=== PATIENT | female | born 1945 | race Caucasian/White ===

== ENCOUNTER 2017-04-29 14:31 | Outpatient (RCR) | payer MEDICARE, OTHER, SELFPAY ==
[2017-04-28 01:12] VITALS: BP 134/78; PULSE 84; RESP 18; TEMP 37.3; BMI 19.5
[2017-04-29 14:44] VITALS: BP 115/72; PULSE 75; RESP 18; TEMP 37; BMI 19.5
--- NOTE | 2017-04-29 16:10 | PCM.WC.PN ---
(1) Non-pressure chronic ulcer of left ankle with fat layer exposed Status: Acute Current Visit: Yes Code(s): L97.322 - Non-pressure chronic ulcer of left ankle with fat layer exposed (2) Venous insufficiency (chronic) (peripheral) Status: Chronic Current Visit: Yes Code(s): I87.2 - Venous insufficiency (chronic) (peripheral) (3) Localized edema Status: Chronic Current Visit: Yes Code(s): R60.0 - Localized edema Type of Wound Date of Service: 04/29/17 Chief Complaint: non-healing wound left ankle History of Wound: 72 year old woman, non-diabetic, presents with approximately 1 month history of left ankle ulceration. She is not sure how it started, but believes it might have started due to rubbing in a certain pair of shoes. She notes that the area started as a rash that she scratched, and it turned into a large open wound. She has been applying triamcinalone cream along with telfa pad. Referred here by her PCP. Has not had imaging, vascular studies, labs done recently. Pt is a current light smoker, approximately 4-5 cigarettes per day. Denies much pain, pus, malodor, warmth, redness. Denies N/V/F/C. No history of autoimmune disease. Has mild edema of her left leg. 02/18--Using santyl nickel thickness and dry dressing daily. Labs done, x-rays done, but pt forgot about vascular testing which we rescheduled for next week. Using lotrisone cream to rash around ulcer L ankle. X-rays show no acute osseous abnormality. Labs showed multiple problems including anemia (hgb 7.0). We did forward the CBC results to her PCP on Friday02/14/17, and instructed the patient to contact his office today to schedule an appointment to discuss these labs. Pt denies pus, malodor, warmth, pain, redness. Denies N/V/F/C. 03/04--Using santyl nickel thickness and dry dressing daily. Labs done, x-rays done, but pt forgot about vascular testing again which we rescheduled for next week--unfortunately her recently . Using lotrisone cream to rash around ulcer L ankle. X-rays show no acute osseous abnormality. Labs showed multiple problems including anemia (hgb 7.0). We did forward the CBC results to her PCP on Friday02/14/17, and instructed the patient to contact his office once again today to schedule an appointment to discuss these labs. Pt denies pus, malodor, warmth, pain, redness. Denies N/V/F/C. We will setup home health -- her was performing dressing changes. Plan for biopsy after vascular testing given atypical appearance and location of ulcer. 03/11--Using santyl nickel thickness and dry dressing daily. Using lotrisone cream to rash around ulcer L ankle. Labs showed multiple problems including anemia (hgb 7.0). We did forward the CBC results to her PCP on Friday02/14/17, and instructed the patient to contact his office once again today to schedule an appointment to discuss these labs. Pt denies pus, malodor, warmth, pain, redness. Denies N/V/F/C. Plan for biopsy after vascular testing given atypical appearance and location of ulcer. Plan to decrease to 3x/week dsg changes. 03/18--Using fibracol plus every other day. Using lotrisone cream to rash around ulcer L ankle. Labs showed multiple problems including anemia (hgb 7.0). We did forward the CBC results to her PCP on Friday02/14/17, and instructed the patient to contact his office once again today to schedule an appointment to discuss these labs--she has not yet done so. Pt denies pus, malodor, warmth, pain, redness. Denies N/V/F/C. We were planning for biopsy after vascular testing given atypical appearance and location of ulcer, but given finding of venous insufficiency, we will treat this as a VLU and biopsy in the future if needed. Plan to decrease to 2x/week dsg changes and add compression with 3M 2-layer coban wrap. 03/25--Improved with fibracol plus and 3M 2-layer coban wrap. Still has not seen her PCP for abnormal lab work, advised her again to schedule an appointment to see him. Denies N/V/F/C. Denies pain, malodor, warmth, redness, pus. 04/08--Improved with fibracol plus and 3M 2-layer coban wrap. Still has not seen her PCP for abnormal lab work, advised her again to schedule an appointment to see him. Her daughter is with her today and states that she will get that appointment scheduled. Denies N/V/F/C. Denies pain, malodor, warmth, redness, pus. 04/15--Improved with fibracol plus and 3M 2-layer coban wrap. Still has not seen her PCP for abnormal lab work, advised her again to schedule an appointment to see him. Her daughter is with her today and states that she will get that appointment scheduled. Denies N/V/F/C. Denies pain, malodor, warmth, redness, pus. 04/29/17--Improved with fibracol plus and 3M 2-layer coban wrap. Still has not seen her PCP for abnormal lab work, advised her once again to schedule an appointment to see him. Denies N/V/F/C. Denies pain, malodor, warmth, redness, pus. Progress of Wound: Measurements improved and more granular tissue in the wound bed today. - Physical Exam Vital Signs Temp Pulse Resp BP 98.6 F 75 18 115/72 04/29/17 14:44 04/29/17 14:44 04/29/17 14:44 04/29/17 14:44 General: Alert, Cooperative, No apparent distress Skin: Ulcer/ Wound - L medial ankle with no erythema, no malodor, no pus, no calor, no TTP. No clinical signs of acute bacterial infection noted. See nurse's wound assessment. Wound Measurements and Assessment WC - Nurse 1 - General Ulcer Measurement Start: 04/29/17 14:43 Freq: Status: Active Protocol: Activity Type Activity Date Activity User E-Sign Co-Sign Detail Recorded Client Recorded Date Recorded By Document 04/29/17 14:44 DALIA [id number] 04/29/17 14:51 DALIA 04/29/17 14:44 Wound Center Nurse 1 [Ulcer Assessment Protocol: WC.WD.LOC] #1 Left Medial Ankle -Combined with other wound No -Current Size (cm) - Length 0.5 -Current Size (cm) - Width 1.0 -Current Size (cm) - Depth 0.1 -Total Square Cm 0.50 -Photo Taken No -Epithelialization Medium 34-66% -Tunneling No -Undermining/Tunneling No -Circular Undermining No -Exudate Amt Small (1-33%) -Exudate Type Serosanguineous -Wound Margin Flat & Intact -Granulation Amt Large (67-100%) -Granulation Quality Red -Slough/Fibrin Yes -Necrosis Amt Small (1-33%) -Necrotic Tissue Type Adherent Slough -Structure Exposed N/A -Texture (Angelic-wound Skin Appearance) Assessed Scarring -Moisture (Angelic-wound Skin Appearance Assessed ) Dry/Scaly -Color (Angelic-wound Skin Appearance) Assessed Hemosiderin Staining -Temperature (Angelic-wound Skin No Abnormality Appearance) (Pt Warm) -Tenderness on Palpation (Angelic-wound No Skin Appearance) -Ulcer Cleansing Wound Cleanser -Foul Odor after Cleansing No -Anesthetic Used 4% Lidocaine Solution [Edema Assessment] -Lower Limb Edema Present No -Left Calf (cm) 28.0 -Left Ankle (cm) 18.4 WC - Nurse 2 - General Ulcer CM Notes Start: 04/29/17 14:43 Freq: Status: Active Protocol: Activity Type Activity Date Activity User E-Sign Co-Sign Detail Recorded Client Recorded Date Recorded By Document 04/29/17 15:35 MW [id number] 04/29/17 15:38 MW 04/29/17 15:35 Wound Center Nurse 2 [Procedure/Treatment] #1 Left Medial Ankle -Time 15:35 -Correct Patient Yes -Correct Side, Site, Position Yes -Correct Procedure Yes -Procedure Performed Yes -Type of Procedure Debridement -Clinical Debridement Subcutaneous -Post Debridement Size (cm) - Length 0.9 -Post Debridement Size (cm) - Width 0.5 -Post Debridement Size (cm) - Depth 0.1 -Total Square Cm 0.45 -Wound/Ulcer Outcome Not Healed -Ulcer Cleansing Rinsed/ Irrigated with Saline -Foul Odor after Cleansing No -Bioengineered Tissue No -Cetacaine [place] No -Bleeding Controlled with Pressure -Treatment Response Procedure Tolerated Well [See Physician Procedure note for Specifics] Pain Scale: 0-10 Numeric [Pain] -Is Patient Pain Free? Yes Debridement Note Post-Debridement Measurements/Treatment WC - Nurse 2 - General Ulcer CM Notes Start: 04/29/17 14:43 Freq: Status: Active Protocol: Activity Type Activity Date Activity User E-Sign Co-Sign Detail Recorded Client Recorded Date Recorded By Document 04/29/17 15:35 MW [id number] 04/29/17 15:38 MW 04/29/17 15:35 Wound Center Nurse 2 #1 Left Medial Ankle -Time 15:35 -Correct Patient Yes -Correct Side, Site, Position Yes -Correct Procedure Yes -Procedure Performed Yes -Type of Procedure Debridement -Clinical Debridement Subcutaneous -Post Debridement Size (cm) - Length 0.9 -Post Debridement Size (cm) - Width 0.5 -Post Debridement Size (cm) - Depth 0.1 -Total Square Cm 0.45 -Wound/Ulcer Outcome Not Healed -Ulcer Cleansing Rinsed/ Irrigated with Saline -Foul Odor after Cleansing No -Bioengineered Tissue No -Cetacaine [place] No -Bleeding Controlled with Pressure -Treatment Response Procedure Tolerated Well Pain Scale: 0-10 Numeric Is Patient Pain Free? Yes Wound debrided: L medial ankle Laterality: Left Wound Grade/Stage: Full thickness VLU Type of Debridement: Excisional debridement Anesthesia Used: 4% Lidocaine Solution Depth: Down to and including healthy tissue, in the subcutaneous layer Percentage of wound debrided: 100 Instrument Used: 3mm curette Tissue Removed: fibrous slough Severity: Fat Layer Exposed Amount of bleeding with debridement: Mild Bleeding Controlled with: Pressure, Compression and gauze Measures smaller after debridement Assessment/Plan Active Problems Non-pressure chronic ulcer of left ankle with fat layer exposed (Acute) Localized edema (Chronic) Venous insufficiency (chronic) (peripheral) (Chronic) Assessment: See diagnoses Plan: SQ/excisional debridement of L ankle ulcer as above. Cont fibracol plus, cont stasis pad. Cont 3M 2-layer coban wrap, Friday wrap change by home health. We were planning on biopsy, but this ulcer appears to be secondary to venous insufficiency--we will treat as such but biopsy in the future if needed. Advised pt again that she needs to contact her PCP for abnormal labs. Monitor for redness, pus, malodor, warmth, pain, swelling as well as for N/V/F/C, and call or go to the ED with these. Call wound center with questions prior to f/u appt in 1 week. Home health once per week.
--- NOTE | 2017-04-29 16:13 | PN.PCM_ITS ---
(1) Non-pressure chronic ulcer of left ankle with fat layer exposed Status: Acute Current Visit: Yes Code(s): L97.322 - Non-pressure chronic ulcer of left ankle with fat layer exposed (2) Venous insufficiency (chronic) (peripheral) Status: Chronic Current Visit: Yes Code(s): I87.2 - Venous insufficiency ( chronic) (peripheral) (3) Localized edema Status: Chronic Current Visit: Yes Code(s): R60.0 - Localized edema Type of Wound Date of Service: 04/29/17 Chief Complaint: non-healing wound left ankle History of Wound: 72 year old woman, non-diabetic, presents with approximately 1 month history of left ankle ulceration. She is not sure how it started, but believes it might have started due to rubbing in a certain pair of shoes. She notes that the area started as a rash that she scratched, and it turned into a large open wound. She has been applying triamcinalone cream along with telfa pad. Referred here by her PCP. Has not had imaging, vascular studies, labs done recently. Pt is a current light smoker, approximately 4-5 cigarettes per day. Denies much pain, pus, malodor, warmth, redness. Denies N/V/F/C. No history of autoimmune disease. Has mild edema of her left leg. 02/18--Using santyl nickel thickness and dry dressing daily. Labs done, x-rays done, but pt forgot about vascular testing which we rescheduled for next week. Using lotrisone cream to rash around ulcer L ankle. X-rays show no acute osseous abnormality. Labs showed multiple problems including anemia (hgb 7.0). We did forward the CBC results to her PCP on Friday02/14/17, and instructed the patient to contact his office today to schedule an appointment to discuss these labs. Pt denies pus, malodor, warmth, pain, redness. Denies N/V/F/C. 03/04-- Using santyl nickel thickness and dry dressing daily. Labs done, x-rays done, but pt forgot about vascular testing again which we rescheduled for next week-- unfortunately her recently . Using lotrisone cream to rash around ulcer L ankle. X-rays show no acute osseous abnormality. Labs showed multiple problems including anemia (hgb 7.0). We did forward the CBC results to her PCP on Friday02/14/17, and instructed the patient to contact his office once again today to schedule an appointment to discuss these labs. Pt denies pus, malodor, warmth, pain, redness. Denies N/V/F/C. We will setup home health -- her was performing dressing changes. Plan for biopsy after vascular testing given atypical appearance and location of ulcer. 03/11--Using santyl nickel thickness and dry dressing daily. Using lotrisone cream to rash around ulcer L ankle. Labs showed multiple problems including anemia (hgb 7.0). We did forward the CBC results to her PCP on Friday02/14/17, and instructed the patient to contact his office once again today to schedule an appointment to discuss these labs. Pt denies pus, malodor, warmth, pain, redness. Denies N /V/F/C. Plan for biopsy after vascular testing given atypical appearance and location of ulcer. Plan to decrease to 3x/week dsg changes. 03/18--Using fibracol plus every other day. Using lotrisone cream to rash around ulcer L ankle. Labs showed multiple problems including anemia (hgb 7.0). We did forward the CBC results to her PCP on Friday02/14/17, and instructed the patient to contact his office once again today to schedule an appointment to discuss these labs--she has not yet done so. Pt denies pus, malodor, warmth, pain, redness. Denies N/V/F/C. We were planning for biopsy after vascular testing given atypical appearance and location of ulcer, but given finding of venous insufficiency, we will treat this as a VLU and biopsy in the future if needed. Plan to decrease to 2x/week dsg changes and add compression with 3M 2- layer coban wrap. 03/25--Improved with fibracol plus and 3M 2-layer coban wrap. Still has not seen her PCP for abnormal lab work, advised her again to schedule an appointment to see him. Denies N/V/F/C. Denies pain, malodor, warmth, redness, pus. 04/08--Improved with fibracol plus and 3M 2-layer coban wrap. Still has not seen her PCP for abnormal lab work, advised her again to schedule an appointment to see him. Her daughter is with her today and states that she will get that appointment scheduled. Denies N/V/F/C. Denies pain, malodor, warmth, redness, pus. 04/15--Improved with fibracol plus and 3M 2- layer coban wrap. Still has not seen her PCP for abnormal lab work, advised her again to schedule an appointment to see him. Her daughter is with her today and states that she will get that appointment scheduled. Denies N/V/F/C. Denies pain, malodor, warmth, redness, pus. 04/29/17--Improved with fibracol plus and 3M 2-layer coban wrap. Still has not seen her PCP for abnormal lab work, advised her once again to schedule an appointment to see him. Denies N/V/ F/C. Denies pain, malodor, warmth, redness, pus. Progress of Wound: Measurements improved and more granular tissue in the wound bed today. - Physical Exam Vital Signs Temp Pulse Resp BP 98.6 F 75 18 115/72 04/29/17 14:44 04/29/17 14:44 04/29/17 14:44 04/29/17 14:44 General: Alert, Cooperative, No apparent distress Skin: Ulcer/ Wound - L medial ankle with no erythema, no malodor, no pus, no calor, no TTP. No clinical signs of acute bacterial infection noted. See nurse 's wound assessment. Wound Measurements and Assessment WC - Nurse 1 - General Ulcer Measurement Start: 04/29/17 14:43 Freq: Status: Active Protocol: Activity Type Activity Date Activity User E-Sign Co-Sign Detail Recorded Client Recorded Date Recorded By Document 04/29/17 14:44 DALIA [id number] 04/29/17 14:51 DALIA 04/29/17 14:44 Wound Center Nurse 1 [Ulcer Assessment Protocol: WC.WD.LOC] #1 Left Medial Ankle -Combined with other wound No -Current Size (cm) - Length 0.5 -Current Size (cm) - Width 1.0 -Current Size (cm) - Depth 0.1 -Total Square Cm 0.50 -Photo Taken No -Epithelialization Medium 34-66% -Tunneling No -Undermining/Tunneling No -Circular Undermining No -Exudate Amt Small (1-33%) -Exudate Type Serosanguineous -Wound Margin Flat & Intact -Granulation Amt Large (67-100%) -Granulation Quality Red -Slough/Fibrin Yes -Necrosis Amt Small (1-33%) -Necrotic Tissue Type Adherent Slough -Structure Exposed N/A -Texture (Angelic-wound Skin Appearance) Assessed Scarring -Moisture (Angelic-wound Skin Appearance Assessed ) Dry/Scaly -Color (Angelic-wound Skin Appearance) Assessed Hemosiderin Staining -Temperature (Angelic-wound Skin No Abnormality Appearance) (Pt Warm) -Tenderness on Palpation (Angelic-wound No Skin Appearance) -Ulcer Cleansing Wound Cleanser -Foul Odor after Cleansing No -Anesthetic Used 4% Lidocaine Solution [Edema Assessment] -Lower Limb Edema Present No -Left Calf (cm) 28.0 -Left Ankle (cm) 18.4 WC - Nurse 2 - General Ulcer CM Notes Start: 04/29/17 14:43 Freq: Status: Active Protocol: Activity Type Activity Date Activity User E-Sign Co-Sign Detail Recorded Client Recorded Date Recorded By Document 04/29/17 15:35 MW [id number] 04/29/17 15:38 MW 04/29/17 15:35 Wound Center Nurse 2 [Procedure/Treatment] #1 Left Medial Ankle -Time 15:35 -Correct Patient Yes -Correct Side, Site, Position Yes -Correct Procedure Yes -Procedure Performed Yes -Type of Procedure Debridement -Clinical Debridement Subcutaneous -Post Debridement Size (cm) - Length 0.9 -Post Debridement Size (cm) - Width 0.5 -Post Debridement Size (cm) - Depth 0.1 -Total Square Cm 0.45 -Wound/Ulcer Outcome Not Healed -Ulcer Cleansing Rinsed/ Irrigated with Saline -Foul Odor after Cleansing No -Bioengineered Tissue No -Cetacaine [place] No -Bleeding Controlled with Pressure -Treatment Response Procedure Tolerated Well [See Physician Procedure note for Specifics] Pain Scale: 0-10 Numeric [Pain] -Is Patient Pain Free? Yes Debridement Note Post-Debridement Measurements/Treatment WC - Nurse 2 - General Ulcer CM Notes Start: 04/29/17 14:43 Freq: Status: Active Protocol: Activity Type Activity Date Activity User E-Sign Co-Sign Detail Recorded Client Recorded Date Recorded By Document 04/29/17 15:35 MW [id number] 04/29/17 15:38 MW 04/29/17 15:35 Wound Center Nurse 2 #1 Left Medial Ankle -Time 15:35 -Correct Patient Yes -Correct Side, Site, Position Yes -Correct Procedure Yes -Procedure Performed Yes -Type of Procedure Debridement -Clinical Debridement Subcutaneous -Post Debridement Size (cm) - Length 0.9 -Post Debridement Size (cm) - Width 0.5 -Post Debridement Size (cm) - Depth 0.1 -Total Square Cm 0.45 -Wound/Ulcer Outcome Not Healed -Ulcer Cleansing Rinsed/ Irrigated with Saline -Foul Odor after Cleansing No -Bioengineered Tissue No -Cetacaine [place] No -Bleeding Controlled with Pressure -Treatment Response Procedure Tolerated Well Pain Scale: 0-10 Numeric Is Patient Pain Free? Yes Wound debrided: L medial ankle Laterality: Left Wound Grade/Stage: Full thickness VLU Type of Debridement: Excisional debridement Anesthesia Used: 4% Lidocaine Solution Depth: Down to and including healthy tissue, in the subcutaneous layer Percentage of wound debrided: 100 Instrument Used: 3mm curette Tissue Removed: fibrous slough Severity: Fat Layer Exposed Amount of bleeding with debridement: Mild Bleeding Controlled with: Pressure, Compression and gauze Measures smaller after debridement Assessment/Plan Active Problems Non-pressure chronic ulcer of left ankle with fat layer exposed (Acute) Localized edema (Chronic) Venous insufficiency (chronic) (peripheral) (Chronic) Assessment: See diagnoses Plan: SQ/excisional debridement of L ankle ulcer as above. Cont fibracol plus , cont stasis pad. Cont 3M 2-layer coban wrap, Friday wrap change by home health. We were planning on biopsy, but this ulcer appears to be secondary to venous insufficiency--we will treat as such but biopsy in the future if needed. Advised pt again that she needs to contact her PCP for abnormal labs. Monitor for redness, pus, malodor, warmth, pain, swelling as well as for N/V/F/C, and call or go to the ED with these. Call wound center with questions prior to f/u appt in 1 week. Home health once per week.
--- NOTE | 2017-05-06 16:14 | PCM.PN.BLA ---
Progress Note Pt was scheduled for an appointment in the wound center today. She did not call to cancel and did not show to this appointment.
== END 2017-05-28 23:59 ==
LOC: WC 14:31
PROVIDERS: Family Provider Family Medicine; PCP Family Medicine; Visit Provider Podiatrist Foot & Ankle Surgery
DX: I87.2 Venous insufficiency (chronic) (peripheral) (principal); L97.322 Non-pressure chronic ulcer of left ankle with fat layer exposed; R60.0 Localized edema; F17.210 Nicotine dependence, cigarettes, uncomplicated; R21 Rash and other nonspecific skin eruption; D64.9 Anemia, unspecified
CPT/HCPCS: 11042; 29581